=== PATIENT | female | born 1965 | race Caucasian/White ===

== ENCOUNTER 2018-05-26 10:10 | Inpatient (IN) | payer OTHER, BC ==
[2018-05-26] MEDS: ALBUTEROL 0.5% (NEB) 2.5 MG/0.5 ML AMP INH (10:42)
[2018-05-26] MEDS ORDERED: NITROGLYCERIN (SL) 0.4 MG TAB (10:43)
[2018-05-26 10:45] LABS: ADD MAN DIFF? NO
[2018-05-26] MEDS: NITROGLYCERIN 2% 1 GM OINT PKT TD (10:45)
[2018-05-26] MEDS: ASPIRIN 81 MG TAB PO (10:45)
[2018-05-26 10:48] LABS: WHITE BLOOD COUNT 11.6 10^3/ul (4.8-10.8)
[2018-05-26 10:48] LABS: ABNORMAL IP MESSAGE 1; BASOPHIL # 0.1 10^3/ul (0.0-0.1); BASOPHILS % 0.4 % (0.0-2.0); EOSINOPHILS # 0.1 10^3/ul (0.0-0.5); EOSINOPHILS % 0.9 % (0.0-7.0); HEMATOCRIT 58.2 % (37.0-47.0); HEMOGLOBIN 16.5 g/dl (12.0-16.0); LYMPHOCYTES % 8.7 % (15.0-51.0); MEAN CORPUSCULAR HEMOGLOBIN 24.5 pg (29.0-33.0); MEAN CORPUSCULAR HGB CONC 28.4 g/dl (32.0-37.0); MEAN CORPUSCULAR VOLUME 86.4 fl (82.0-101.0); MEAN PLATELET VOLUME 10.5 fl (7.4-10.4); MONOCYTE # 0.8 10^3/ul (0.3-0.9); MONOCYTES % 6.9 % (0.0-11.0); NEUTROPHIL # 9.5 10^3/ul (1.6-7.5); NEUTROPHILS % 82.2 % (39.0-77.0); NUCLEATED RED BLOOD CELLS # 0.2 10^3/ul (0.0-0.0); NUCLEATED RED BLOOD CELLS% 1.3 /100WBC (0.0-0.0); PLATELET COUNT 226 10^3/UL (140-415); RED BLOOD COUNT 6.74 10^6/ul (4.20-5.40); RED CELL DISTRIBUTION WIDTH 23.6 % (11.5-14.5)
[2018-05-26 10:49] LABS: POSITIVE DIFF @See below
[2018-05-26] MEDS: NITROGLYCERIN (SL) 0.4 MG TAB SL ×2 (11:04→12:15)
[2018-05-26 11:06] LABS: ALANINE AMINOTRANSFERASE 31 IU/L (13-69); ALBUMIN 3.5 g/dl (3.3-4.9); ALBUMIN/GLOBULIN RATIO 0.97; ALKALINE PHOSPHATASE 123 IU/L (42-121); ANION GAP 13 (8-16); ASPARTATE AMINO TRANSFERASE 34 IU/L (15-46); BILIRUBIN,INDIRECT 1.1 mg/dl (0-1.1); BILIRUBIN,TOTAL 1.1 mg/dl (0.2-1.3); BLOOD UREA NITROGEN 35 mg/dl (7-20); CALCIUM 8.7 mg/dl (8.4-10.2); CARBON DIOXIDE 33 mmol/L (21-31); CHLORIDE 98 mmol/L (97-110); GLUCOSE 150 mg/dl (70-220); SODIUM 139 mmol/L (135-144); TOTAL PROTEIN 7.1 g/dl (6.1-8.1)
[2018-05-26 11:07] LABS: POTASSIUM 5.3 mmol/L (3.5-5.1)
[2018-05-26 11:07] LABS: LACTIC ACID 1.9 mmol/L (0.5-2.0)
[2018-05-26 11:19] LABS: B-TYPE NATRIURETIC PEPTIDE 4700 PG/ML (0-125); TROPONIN-I < 0.012 ng/ml (0.000-0.120)
[2018-05-26 11:20] LABS: INR 1.05; PARTIAL THROMBOPLASTIN TIME 27.1 Sec (25.0-35.0); PROTIME 13.8 Sec (11.9-14.9); PT RATIO 1.1
[2018-05-26] MEDS: CEFTRIAXONE 1 GM/50 ML (PMX) 50 ML IVPB (11:23)
[2018-05-26] MEDS: METHYLPREDNISOLONE (10 MG/ML) IV SYG IV (11:23)
[2018-05-26] MEDS: AZITHROMYCIN 250 MG TAB PO (11:23)
[2018-05-26 11:26] LABS: AADO2 Arterial 533.8 mmHg (7.0-24.0); Allen Test ACCEPTAB; Arterial Base Excess 2.4 mmol/L (-3.0-3); Arterial Blood Gas Oxygen Sat 97.4 mmHG (95.0-98.0); Arterial COHb 2.6 % (0.0-3.0); Arterial Fraction of Oxyhgb 94.5 % (93.0-99.0); Arterial HCO3 31.9 mmol/L (22.0-26.0); Arterial MetHb 0.4 % (0.0-1.5); Arterial Total Hemglobin 17.6 g/dl (12.0-18.0); Arterial pCO2 69.5 mmhg (35-45); MODE MASK - NRB; Site Left Radial
[2018-05-26] MEDS: FUROSEMIDE 20 MG INJ IV (12:14)
[2018-05-26 12:32] LABS: ADD UMIC YES; UR ASCORBIC ACID NEGATIVE (NEGATIVE); UR BILIRUBIN (Dip) NEGATIVE (NEGATIVE); UR BLOOD (Dip) 1+ mg/dL (NEGATIVE); UR CLARITY SLIGHTLY CLOUDY (CLEAR); UR COLOR YELLOW (YELLOW); UR GLUCOSE (Dip) NEGATIVE (NEGATIVE); UR KETONES (Dip) NEGATIVE (NEGATIVE); UR LEUKOCYTE ESTERASE (Dip) NEGATIVE Leu/ul (NEGATIVE); UR NITRITE (Dip) NEGATIVE (NEGATIVE); UR RBC 1 /HPF (0-5); UR SPECIFIC GRAVITY (Dip) 1.019 (1.003-1.030); UR SQUAMOUS EPITHELIAL CELL FEW /HPF (FEW); UR TOTAL PROTEIN (Dip) 2+ mg/dl (NEGATIVE); UR UROBILINOGEN (Dip) NEGATIVE (NEGATIVE); UR WBC 2 /HPF (0-5)
[2018-05-26] MEDS: NITROGLYCERIN 50 MG/D5W (PMX) 250 ML IV ×3 (12:50→20:56)
[2018-05-26] MEDS ORDERED: BISACODYL 10 MG SUPP PR (14:30)
[2018-05-26] MEDS ORDERED: NACL 0.9% 3 ML SYG IV (14:30)
[2018-05-26] MEDS: METOPROLOL 50 MG TAB PO ×2 (14:30→21:25)
[2018-05-26] MEDS ORDERED: ONDANSETRON 4 MG INJ IV (14:30)
[2018-05-26] MEDS ORDERED: MAGNESIUM HYDROXIDE 30ML CUP PO (14:30)
[2018-05-26] MEDS ORDERED: DOCUSATE SODIUM 100 MG CAP PO (14:30)
[2018-05-26] MEDS: BUMETANIDE 1 MG INJ IV (14:53)
[2018-05-26] MEDS: BUMETANIDE 6 MG in DEXTROSE 5% 36 ML IV (14:53)
[2018-05-26] MEDS ORDERED: GLUCAGON 1 MG INJ IM (15:00)
[2018-05-26] MEDS ORDERED: GLUCOSE GEL 15 GRAM TUBE PO ×2 (15:00)
[2018-05-26] MEDS ORDERED: GLUCOSE GEL 15 GRAM TUBE BUCCAL (15:00)
[2018-05-26] MEDS ORDERED: DEXTROSE 50% 50 ML SYRINGE IV ×2 (15:00)
[2018-05-26 15:48] LABS: AADO2 Arterial 243.9 mmHg (7.0-24.0); Allen Test ACCEPTAB; Arterial Base Excess 4.1 mmol/L (-3.0-3); Arterial Blood Gas Oxygen Sat 97.6 mmHG (95.0-98.0); Arterial COHb 1.6 % (0.0-3.0); Arterial Fraction of Oxyhgb 95.5 % (93.0-99.0); Arterial HCO3 33.4 mmol/L (22.0-26.0); Arterial MetHb 0.6 % (0.0-1.5); Arterial Total Hemglobin 17.5 g/dl (12.0-18.0); Arterial pCO2 69.2 mmhg (35-45); Blood Gas IEPAP 8; Blood Gas PS 16/8; MODE MASK - BIPAP; Site Left Radial
[2018-05-26 16:43] LABS: CREATINE KINASE 120 IU/L (23-200)
[2018-05-26] MEDS: LEVALBUTEROL (NEB) 0.63 MG/3 ML AMP HHN ×2 (16:52→23:02)
[2018-05-26 16:56] LABS: CK-MB 2.43 ng/ml (0.0-2.4); TROPONIN-I 0.013 ng/ml (0.000-0.120)
[2018-05-26] MEDS: ACCU-CHEK XX ×2 (17:30→21:15)
[2018-05-26] MEDS: INSULIN ASPART [NOVOLOG] 3 ML PEN SC ×2 (18:00→21:00)
[2018-05-26] MEDS ORDERED: LOSARTAN 50 MG TAB PO (21:00)
[2018-05-26] MEDS: ISOSORBIDE DINITRATE 10 MG TAB PO (21:24)
[2018-05-26] MEDS: ATORVASTATIN 40 MG TAB PO (21:24)
[2018-05-26] MEDS: FAMOTIDINE 20 MG TAB PO (21:25)
[2018-05-26] MEDS: LOSARTAN 25 MG TAB PO (21:25)
[2018-05-26] MEDS: HEPARIN 5,000 UNIT/0.5 ML VIAL SC (22:14)
[2018-05-26 23:22] LABS: CREATINE KINASE 84 IU/L (23-200)
[2018-05-26 23:34] LABS: CK INDEX 2.2; CK-MB 1.82 ng/ml (0.0-2.4); TROPONIN-I < 0.012 ng/ml (0.000-0.120)
[2018-05-27] MEDS: NITROGLYCERIN 50 MG/D5W (PMX) 250 ML IV ×5 (00:39→21:01)
[2018-05-27 05:16] LABS: AADO2 Arterial 129.5 mmHg (7.0-24.0); Allen Test ACCEPTAB; Arterial Base Excess 10.8 mmol/L (-3.0-3); Arterial Blood Gas Oxygen Sat 94.9 mmHG (95.0-98.0); Arterial Fraction of Oxyhgb 93.6 % (93.0-99.0); Arterial HCO3 39.3 mmol/L (22.0-26.0); Arterial MetHb 0.4 % (0.0-1.5); Arterial Total Hemglobin 16.6 g/dl (12.0-18.0); Arterial pCO2 66.5 mmhg (35-45); Blood Gas IEPAP 22/8; MODE MASK - BIPAP; Site Left Radial
[2018-05-27 05:28] LABS: ADD MAN DIFF? NO
[2018-05-27] MEDS: HEPARIN 5,000 UNIT/0.5 ML VIAL SC ×3 (05:30→22:35)
[2018-05-27 05:31] LABS: ABNORMAL IP MESSAGE 1; BASOPHILS % 0.2 % (0.0-2.0); HEMATOCRIT 53.1 % (37.0-47.0); HEMOGLOBIN 15.5 g/dl (12.0-16.0); LYMPHOCYTES # 0.6 10^3/ul (0.8-2.9); LYMPHOCYTES % 5.4 % (15.0-51.0); MEAN CORPUSCULAR HEMOGLOBIN 24.3 pg (29.0-33.0); MEAN CORPUSCULAR HGB CONC 29.2 g/dl (32.0-37.0); MEAN CORPUSCULAR VOLUME 83.2 fl (82.0-101.0); MEAN PLATELET VOLUME 10.7 fl (7.4-10.4); MONOCYTE # 0.3 10^3/ul (0.3-0.9); MONOCYTES % 2.3 % (0.0-11.0); NEUTROPHIL # 10.9 10^3/ul (1.6-7.5); NEUTROPHILS % 91.4 % (39.0-77.0); NUCLEATED RED BLOOD CELLS # 0.1 10^3/ul (0.0-0.0); NUCLEATED RED BLOOD CELLS% 0.7 /100WBC (0.0-0.0); PLATELET COUNT 215 10^3/UL (140-415); RED BLOOD COUNT 6.38 10^6/ul (4.20-5.40); RED CELL DISTRIBUTION WIDTH 22.8 % (11.5-14.5)
[2018-05-27 05:31] LABS: WHITE BLOOD COUNT 11.9 10^3/ul (4.8-10.8)
[2018-05-27 05:52] LABS: POSITIVE DIFF @See below
[2018-05-27 06:10] LABS: ALANINE AMINOTRANSFERASE 27 IU/L (13-69); ALBUMIN 2.9 g/dl (3.3-4.9); ALBUMIN/GLOBULIN RATIO 0.93; ALKALINE PHOSPHATASE 93 IU/L (42-121); ANION GAP 13 (8-16); ASPARTATE AMINO TRANSFERASE 26 IU/L (15-46); BILIRUBIN,INDIRECT 0.7 mg/dl (0-1.1); BILIRUBIN,TOTAL 0.7 mg/dl (0.2-1.3); BLOOD UREA NITROGEN 31 mg/dl (7-20); CALCIUM 8.1 mg/dl (8.4-10.2); CARBON DIOXIDE 39 mmol/L (21-31); CHLORIDE 91 mmol/L (97-110); CHOL/HDL RATIO 5.2 RATIO; CHOLESTEROL 163 mg/dl (100-200); CREATININE 0.99 mg/dl (0.44-1.00); GLUCOSE 144 mg/dl (70-220); HDL CHOLESTEROL 31 mg/dl (37-92); LDL CHOLESTEROL,CALCULATED 116 mg/dl; MAGNESIUM 1.3 mg/dl (1.7-2.5); POTASSIUM 4.5 mmol/L (3.5-5.1); SODIUM 138 mmol/L (135-144); TRIGLYCERIDES 81 mg/dl (0-149)
[2018-05-27 06:21] LABS: FREE T4 (FREE THYROXINE) 1.23 ng/dl (0.64-1.79)
[2018-05-27 06:35] LABS: HEMOGLOBIN A1C 6.9 % (0-5.9)
[2018-05-27] MEDS: INSULIN ASPART [NOVOLOG] 3 ML PEN SC ×4 (07:35→21:00)
[2018-05-27] MEDS: METOPROLOL 50 MG TAB PO ×2 (08:14→21:01)
[2018-05-27] MEDS: ASPIRIN (EC) 81 MG TAB PO (08:14)
[2018-05-27] MEDS: ACCU-CHEK XX ×4 (08:14→21:17)
[2018-05-27] MEDS: LINAGLIPTIN 5 MG TABLET PO (08:14)
[2018-05-27] MEDS: FAMOTIDINE 20 MG TAB PO ×2 (08:14→21:01)
[2018-05-27] MEDS: LEVALBUTEROL (NEB) 0.63 MG/3 ML AMP HHN ×3 (08:17→23:25)
[2018-05-27] MEDS: ISOSORBIDE DINITRATE 10 MG TAB PO ×3 (08:27→21:02)
[2018-05-27] MEDS: AZITHROMYCIN 250 MG TAB PO (09:49)
[2018-05-27] MEDS: LOSARTAN 25 MG TAB PO (10:01)
[2018-05-27] MEDS: BUMETANIDE 1 MG INJ IV ×2 (10:04→17:41)
[2018-05-27] MEDS: CEFTRIAXONE 1 GM/50 ML (PMX) 50 ML IVPB (10:04)
[2018-05-27] MEDS: MAGNESIUM SULFATE 4 GM/100 ML 100 ML IVPB (12:33)
[2018-05-27] MEDS: LOSARTAN 50 MG TAB PO ×2 (12:36→21:02)
[2018-05-27] MEDS: ATORVASTATIN 40 MG TAB PO (21:01)
[2018-05-28 05:17] LABS: ADD MAN DIFF? NO
[2018-05-28 05:26] LABS: ABNORMAL IP MESSAGE 1; BASOPHILS % 0.3 % (0.0-2.0); EOSINOPHILS # 0.1 10^3/ul (0.0-0.5); EOSINOPHILS % 1.1 % (0.0-7.0); HEMOGLOBIN 15.6 g/dl (12.0-16.0); LYMPHOCYTES # 1.3 10^3/ul (0.8-2.9); LYMPHOCYTES % 13.4 % (15.0-51.0); MEAN CORPUSCULAR HEMOGLOBIN 24.5 pg (29.0-33.0); MEAN CORPUSCULAR HGB CONC 28.4 g/dl (32.0-37.0); MEAN CORPUSCULAR VOLUME 86.5 fl (82.0-101.0); MEAN PLATELET VOLUME 10.4 fl (7.4-10.4); MONOCYTE # 0.7 10^3/ul (0.3-0.9); MONOCYTES % 7.1 % (0.0-11.0); NEUTROPHIL # 7.7 10^3/ul (1.6-7.5); NEUTROPHILS % 77.5 % (39.0-77.0); NUCLEATED RED BLOOD CELLS% 0.3 /100WBC (0.0-0.0); PLATELET COUNT 226 10^3/UL (140-415); RED BLOOD COUNT 6.36 10^6/ul (4.20-5.40); RED CELL DISTRIBUTION WIDTH 22.7 % (11.5-14.5)
[2018-05-28 05:26] LABS: WHITE BLOOD COUNT 9.9 10^3/ul (4.8-10.8)
[2018-05-28 05:39] LABS: POSITIVE DIFF @See below
[2018-05-28 06:01] LABS: BLOOD UREA NITROGEN 43 mg/dl (7-20); CHLORIDE 92 mmol/L (97-110); CREATININE 1.22 mg/dl (0.44-1.00); GLUCOSE 103 mg/dl (70-220); POTASSIUM 4.4 mmol/L (3.5-5.1); SODIUM 139 mmol/L (135-144)
[2018-05-28 06:08] LABS: ANION GAP 12 (8-16)
[2018-05-28 06:10] LABS: CARBON DIOXIDE 39 mmol/L (21-31)
[2018-05-28 06:15] LABS: MAGNESIUM 2.2 mg/dl (1.7-2.5)
[2018-05-28 06:15] LABS: PHOSPHORUS 5.6 mg/dl (2.5-4.9)
[2018-05-28] MEDS: BUMETANIDE 1 MG INJ IV ×2 (06:26→17:49)
[2018-05-28] MEDS: HEPARIN 5,000 UNIT/0.5 ML VIAL SC ×3 (06:28→22:29)
[2018-05-28] MEDS: INSULIN ASPART [NOVOLOG] 3 ML PEN SC ×4 (07:35→21:00)
[2018-05-28] MEDS: LEVALBUTEROL (NEB) 0.63 MG/3 ML AMP HHN ×4 (08:19→23:20)
[2018-05-28 08:28] LABS: AADO2 Arterial 66.4 mmHg (7.0-24.0); Allen Test ACCEPTAB; Arterial Base Excess 7.3 mmol/L (-3.0-3); Arterial COHb 0.8 % (0.0-3.0); Arterial HCO3 40.1 mmol/L (22.0-26.0); Arterial MetHb 0.3 % (0.0-1.5); Arterial Total Hemglobin 16.8 g/dl (12.0-18.0); Arterial pCO2 100.8 mmhg (35-45); MODE NASAL CANNULA; Site Left Radial
[2018-05-28] MEDS: LINAGLIPTIN 5 MG TABLET PO (09:00)
[2018-05-28] MEDS: METOPROLOL 50 MG TAB PO ×2 (09:00→21:06)
[2018-05-28] MEDS: ISOSORBIDE DINITRATE 10 MG TAB PO ×3 (09:50→21:06)
[2018-05-28] MEDS: LOSARTAN 50 MG TAB PO ×2 (09:50→21:07)
[2018-05-28] MEDS: ASPIRIN (EC) 81 MG TAB PO (09:50)
[2018-05-28] MEDS: FAMOTIDINE 20 MG TAB PO ×2 (09:52→21:07)
[2018-05-28] MEDS: AZITHROMYCIN 250 MG TAB PO (09:52)
[2018-05-28] MEDS: SILVER SULFADIAZINE 1% 25 GM CR TOP (09:53)
[2018-05-28] MEDS: FLUTICASONE/VILANTEROL 100-25 INH (09:53)
[2018-05-28] MEDS: ACCU-CHEK XX ×4 (09:55→21:12)
[2018-05-28 12:42] LABS: AADO2 Arterial 101.8 mmHg (7.0-24.0); Allen Test ACCEPTAB; Arterial Base Excess 12.6 mmol/L (-3.0-3); Arterial Blood Gas Oxygen Sat 94.5 mmHG (95.0-98.0); Arterial COHb 1.2 % (0.0-3.0); Arterial Fraction of Oxyhgb 93.1 % (93.0-99.0); Arterial HCO3 44.2 mmol/L (22.0-26.0); Arterial MetHb 0.3 % (0.0-1.5); Arterial Total Hemglobin 16.8 g/dl (12.0-18.0); Arterial pCO2 90.4 mmhg (35-45); Blood Gas IEPAP 22/8; Blood Gas PS 14; MODE MASK - BIPAP; Site Left Radial
[2018-05-28] MEDS: CEFTRIAXONE 1 GM/50 ML (PMX) 50 ML IVPB (12:56)
[2018-05-28 20:57] LABS: AADO2 Arterial 191.3 mmHg (7.0-24.0); Allen Test ACCEPTAB; Arterial Base Excess 11.3 mmol/L (-3.0-3); Arterial COHb 1.2 % (0.0-3.0); Arterial Fraction of Oxyhgb 94.6 % (93.0-99.0); Arterial HCO3 40.4 mmol/L (22.0-26.0); Arterial MetHb 0.3 % (0.0-1.5); Arterial Total Hemglobin 17.1 g/dl (12.0-18.0); Arterial pCO2 70.4 mmhg (35-45); MODE HFNC; Site Left Radial
[2018-05-28] MEDS: ATORVASTATIN 40 MG TAB PO (21:06)
[2018-05-29] MEDS: LORAZEPAM 2 MG INJ IV ×2 (00:48→22:59)
[2018-05-29 05:26] LABS: ADD MAN DIFF? NO
[2018-05-29 05:40] LABS: WHITE BLOOD COUNT 8.4 10^3/ul (4.8-10.8)
[2018-05-29 05:40] LABS: ABNORMAL IP MESSAGE 1; BASOPHILS % 0.2 % (0.0-2.0); EOSINOPHILS # 0.2 10^3/ul (0.0-0.5); EOSINOPHILS % 2.9 % (0.0-7.0); HEMATOCRIT 54.8 % (37.0-47.0); HEMOGLOBIN 15.2 g/dl (12.0-16.0); LYMPHOCYTES # 1.1 10^3/ul (0.8-2.9); LYMPHOCYTES % 12.9 % (15.0-51.0); MEAN CORPUSCULAR HEMOGLOBIN 24.2 pg (29.0-33.0); MEAN CORPUSCULAR HGB CONC 27.7 g/dl (32.0-37.0); MEAN CORPUSCULAR VOLUME 87.3 fl (82.0-101.0); MEAN PLATELET VOLUME 10.5 fl (7.4-10.4); MONOCYTE # 0.8 10^3/ul (0.3-0.9); MONOCYTES % 9.4 % (0.0-11.0); NEUTROPHIL # 6.2 10^3/ul (1.6-7.5); NEUTROPHILS % 74.2 % (39.0-77.0); PLATELET COUNT 194 10^3/UL (140-415); RED BLOOD COUNT 6.28 10^6/ul (4.20-5.40); RED CELL DISTRIBUTION WIDTH 22.8 % (11.5-14.5)
[2018-05-29 05:54] LABS: MAGNESIUM 1.8 mg/dl (1.7-2.5)
[2018-05-29 05:54] LABS: PHOSPHORUS 4.6 mg/dl (2.5-4.9)
[2018-05-29 05:55] LABS: POSITIVE DIFF @See below
[2018-05-29 06:02] LABS: ALANINE AMINOTRANSFERASE 32 IU/L (13-69); ALBUMIN 2.7 g/dl (3.3-4.9); ALBUMIN/GLOBULIN RATIO 0.96; ALKALINE PHOSPHATASE 89 IU/L (42-121); ASPARTATE AMINO TRANSFERASE 33 IU/L (15-46); BILIRUBIN,INDIRECT 0.6 mg/dl (0-1.1); BILIRUBIN,TOTAL 0.6 mg/dl (0.2-1.3); BLOOD UREA NITROGEN 39 mg/dl (7-20); CHLORIDE 91 mmol/L (97-110); CREATININE 1.16 mg/dl (0.44-1.00); GLUCOSE 101 mg/dl (70-220); POTASSIUM 4.3 mmol/L (3.5-5.1); SODIUM 140 mmol/L (135-144); TOTAL PROTEIN 5.5 g/dl (6.1-8.1)
[2018-05-29] MEDS: BUMETANIDE 1 MG INJ IV (06:04)
[2018-05-29] MEDS: HEPARIN 5,000 UNIT/0.5 ML VIAL SC ×3 (06:14→21:58)
[2018-05-29] MEDS: INSULIN ASPART [NOVOLOG] 3 ML PEN SC ×4 (07:35→21:15)
[2018-05-29] MEDS: ACCU-CHEK XX ×4 (08:29→21:08)
[2018-05-29] MEDS: LEVALBUTEROL (NEB) 0.63 MG/3 ML AMP HHN (08:48)
[2018-05-29 09:17] LABS: AADO2 Arterial 178.8 mmHg (7.0-24.0); Allen Test ACCEPTAB; Arterial Base Excess 14.9 mmol/L (-3.0-3); Arterial Blood Gas Oxygen Sat 94.2 mmHG (95.0-98.0); Arterial COHb 1.1 % (0.0-3.0); Arterial Fraction of Oxyhgb 92.9 % (93.0-99.0); Arterial HCO3 46.2 mmol/L (22.0-26.0); Arterial MetHb 0.3 % (0.0-1.5); Arterial Total Hemglobin 16.7 g/dl (12.0-18.0); Blood Gas IEPAP 22/8; MODE MASK - BIPAP; Site Left Radial
[2018-05-29 09:21] LABS: ANION GAP 12 (8-16); CARBON DIOXIDE 41 mmol/L (21-31)
[2018-05-29] MEDS: ISOSORBIDE DINITRATE 10 MG TAB PO ×3 (10:48→21:07)
[2018-05-29] MEDS: SILVER SULFADIAZINE 1% 25 GM CR TOP (10:48)
[2018-05-29] MEDS: AZITHROMYCIN 250 MG TAB PO (10:48)
[2018-05-29] MEDS: FLUTICASONE/VILANTEROL 100-25 INH (10:48)
[2018-05-29] MEDS: LINAGLIPTIN 5 MG TABLET PO (10:49)
[2018-05-29] MEDS: LOSARTAN 50 MG TAB PO ×2 (10:49→21:07)
[2018-05-29] MEDS: FAMOTIDINE 20 MG TAB PO ×2 (10:49→21:07)
[2018-05-29] MEDS: ASPIRIN (EC) 81 MG TAB PO (10:50)
[2018-05-29] MEDS: METOPROLOL 50 MG TAB PO ×2 (10:50→21:07)
[2018-05-29] MEDS: CEFTRIAXONE 1 GM/50 ML (PMX) 50 ML IVPB (10:53)
[2018-05-29] MEDS: METHYLPREDNISOLONE 40 MG INJ IV ×2 (12:50→17:38)
[2018-05-29] MEDS: hydrALAzine 20 MG INJ IV (12:53)
[2018-05-29] MEDS: LEVALBUTEROL (NEB) 1.25 MG/0.5 ML AMP HHN ×3 (13:34→21:00)
[2018-05-29] MEDS: GUAIFENESIN 20 MG/ML 5ML CUP PO (18:11)
[2018-05-29] MEDS: BENZONATATE 100 MG CAP PO (18:11)
[2018-05-29] MEDS: ATORVASTATIN 40 MG TAB PO (21:07)
[2018-05-30] MEDS: METHYLPREDNISOLONE 40 MG INJ IV ×5 (00:57→23:12)
[2018-05-30] MEDS: LEVALBUTEROL (NEB) 1.25 MG/0.5 ML AMP HHN ×6 (01:02→20:48)
[2018-05-30 05:14] LABS: RED BLOOD COUNT 6.62 10^6/ul (4.20-5.40)
[2018-05-30 05:15] LABS: ABNORMAL IP MESSAGE 1; HEMATOCRIT 57.6 % (37.0-47.0); MEAN CORPUSCULAR HEMOGLOBIN 24.2 pg (29.0-33.0); MEAN CORPUSCULAR HGB CONC 27.8 g/dl (32.0-37.0); MEAN PLATELET VOLUME 10.4 fl (7.4-10.4); PLATELET COUNT 205 10^3/UL (140-415); RED CELL DISTRIBUTION WIDTH 21.8 % (11.5-14.5)
[2018-05-30 05:21] LABS: ADD MAN DIFF? YES; POSITIVE DIFF @See below
[2018-05-30] MEDS: hydrALAzine 20 MG INJ IV ×2 (05:24→18:00)
[2018-05-30] MEDS: HEPARIN 5,000 UNIT/0.5 ML VIAL SC ×3 (05:36→21:28)
[2018-05-30 05:43] LABS: MAGNESIUM 1.8 mg/dl (1.7-2.5)
[2018-05-30 05:44] LABS: BLOOD UREA NITROGEN 34 mg/dl (7-20); CALCIUM 8.4 mg/dl (8.4-10.2); CHLORIDE 93 mmol/L (97-110); GLUCOSE 165 mg/dl (70-220); POTASSIUM 4.8 mmol/L (3.5-5.1); SODIUM 140 mmol/L (135-144)
[2018-05-30 06:00] LABS: ANION GAP 12 (8-16)
[2018-05-30 06:02] LABS: CARBON DIOXIDE 40 mmol/L (21-31)
[2018-05-30] MEDS: BUMETANIDE 1 MG INJ IV (09:06)
[2018-05-30] MEDS: ISOSORBIDE DINITRATE 10 MG TAB PO ×3 (09:07→20:03)
[2018-05-30] MEDS: LINAGLIPTIN 5 MG TABLET PO (09:07)
[2018-05-30] MEDS: FAMOTIDINE 20 MG TAB PO ×2 (09:07→20:03)
[2018-05-30] MEDS: ASPIRIN (EC) 81 MG TAB PO (09:07)
[2018-05-30] MEDS: AZITHROMYCIN 250 MG TAB PO (09:07)
[2018-05-30] MEDS: METOPROLOL 50 MG TAB PO ×2 (09:08→20:02)
[2018-05-30] MEDS: LOSARTAN 50 MG TAB PO ×2 (09:08→20:02)
[2018-05-30] MEDS: FLUTICASONE/VILANTEROL 100-25 INH (09:09)
[2018-05-30] MEDS: SILVER SULFADIAZINE 1% 25 GM CR TOP (09:09)
[2018-05-30] MEDS: INSULIN ASPART [NOVOLOG] 3 ML PEN SC ×4 (09:22→20:05)
[2018-05-30 09:45] LABS: SEGMENTED NEUTROPHILS (M) % 84 % (39-77)
[2018-05-30 09:46] LABS: ANISOCYTOSIS 1+ (0-0); BAND NEUTROPHILS #M 0.1 10^3/ul (0.0-0.6); BAND NEUTROPHILS % (M) 2 % (0-4); LYMPHOCYTES #M 0.5 10^3/ul (0.8-2.9); LYMPHOCYTES % (M) 8 % (15-51); MICROCYTOSIS 1+ (0-0); MONOCYTES % (M) 1 % (0-11); PLATELET ESTIMATE NORMAL; POIKILOCYTOSIS 3+ (0-0); POLYCHROMASIA 2+ (0-0); REACTIVE LYMPHOCYTES #M 0.3 10^3/ul (0.0-0.0); REACTIVE LYMPHOCYTES% (M) 5 % (0-0); SEG NEUT #M 5.9 10^3/ul (1.6-7.5)
[2018-05-30 10:09] LABS: AADO2 Arterial 202.3 mmHg (7.0-24.0); Allen Test ACCEPTAB; Arterial Base Excess 13.2 mmol/L (-3.0-3); Arterial Blood Gas Oxygen Sat 92.2 mmHG (95.0-98.0); Arterial COHb 1.1 % (0.0-3.0); Arterial Fraction of Oxyhgb 90.8 % (93.0-99.0); Arterial HCO3 43.2 mmol/L (22.0-26.0); Arterial MetHb 0.4 % (0.0-1.5); Arterial Total Hemglobin 16.9 g/dl (12.0-18.0); Arterial pCO2 77.4 mmhg (35-45); Blood Gas IEPAP 22/8; Blood Gas PS 14; MODE MASK - BIPAP; Site Left Radial
[2018-05-30 10:21] LABS: B-TYPE NATRIURETIC PEPTIDE 4780 PG/ML (0-125)
[2018-05-30] MEDS: CEFTRIAXONE 1 GM/50 ML (PMX) 50 ML IVPB (11:14)
[2018-05-30] MEDS: ENALAPRILAT 1.25 MG INJ IV (11:17)
[2018-05-30] MEDS: GUAIFENESIN 20 MG/ML 5ML CUP PO (20:01)
[2018-05-30] MEDS: QUETIAPINE 25 MG TAB PO (20:06)
[2018-05-30] MEDS: ATORVASTATIN 40 MG TAB PO (20:06)
[2018-05-30] MEDS ORDERED: QUETIAPINE 25 MG TAB PO (21:00)
[2018-05-30] MEDS: morphine 2 MG INJ IV (22:23)
[2018-05-30] MEDS: HALOPERIDOL 5 MG INJ IV (22:23)
[2018-05-31] MEDS: LEVALBUTEROL (NEB) 1.25 MG/0.5 ML AMP HHN ×6 (01:04→22:09)
[2018-05-31] MEDS: morphine 2 MG INJ IV (04:30)
[2018-05-31] MEDS: METHYLPREDNISOLONE 40 MG INJ IV ×3 (05:03→18:12)
[2018-05-31] MEDS: HEPARIN 5,000 UNIT/0.5 ML VIAL SC ×3 (05:05→21:47)
[2018-05-31] MEDS: ACCU-CHEK XX ×4 (07:05→21:00)
[2018-05-31 08:29] LABS: ADD MAN DIFF? NO
[2018-05-31 08:33] LABS: ABNORMAL IP MESSAGE 1; HEMOGLOBIN 15.5 g/dl (12.0-16.0); LYMPHOCYTES # 0.4 10^3/ul (0.8-2.9); LYMPHOCYTES % 4.2 % (15.0-51.0); MEAN CORPUSCULAR HEMOGLOBIN 23.9 pg (29.0-33.0); MEAN CORPUSCULAR HGB CONC 27.7 g/dl (32.0-37.0); MEAN CORPUSCULAR VOLUME 86.3 fl (82.0-101.0); MEAN PLATELET VOLUME 10.5 fl (7.4-10.4); MONOCYTE # 0.1 10^3/ul (0.3-0.9); MONOCYTES % 1.2 % (0.0-11.0); NEUTROPHIL # 8.5 10^3/ul (1.6-7.5); NEUTROPHILS % 94.3 % (39.0-77.0); PLATELET COUNT 181 10^3/UL (140-415); RED BLOOD COUNT 6.49 10^6/ul (4.20-5.40); RED CELL DISTRIBUTION WIDTH 22.5 % (11.5-14.5)
[2018-05-31 08:43] LABS: POSITIVE DIFF @See below
[2018-05-31 08:54] LABS: MAGNESIUM 1.8 mg/dl (1.7-2.5)
[2018-05-31 08:55] LABS: BLOOD UREA NITROGEN 38 mg/dl (7-20); CALCIUM 8.4 mg/dl (8.4-10.2); CHLORIDE 92 mmol/L (97-110); CREATININE 0.85 mg/dl (0.44-1.00); GLUCOSE 165 mg/dl (70-220); SODIUM 138 mmol/L (135-144)
[2018-05-31 09:02] LABS: ANION GAP 9 (8-16)
[2018-05-31 09:06] LABS: CARBON DIOXIDE 42 mmol/L (21-31)
[2018-05-31] MEDS: SILVER SULFADIAZINE 1% 25 GM CR TOP (09:15)
[2018-05-31] MEDS: FLUTICASONE/VILANTEROL 100-25 INH (09:15)
[2018-05-31] MEDS: BUMETANIDE 1 MG INJ IV (09:16)
[2018-05-31] MEDS: ISOSORBIDE DINITRATE 10 MG TAB PO ×3 (09:16→21:48)
[2018-05-31] MEDS: ASPIRIN (EC) 81 MG TAB PO (09:16)
[2018-05-31] MEDS: LINAGLIPTIN 5 MG TABLET PO (09:17)
[2018-05-31] MEDS: LOSARTAN 50 MG TAB PO ×2 (09:17→21:47)
[2018-05-31] MEDS: FAMOTIDINE 20 MG TAB PO ×2 (09:17→21:48)
[2018-05-31] MEDS: METOPROLOL 50 MG TAB PO ×2 (09:17→21:47)
[2018-05-31] MEDS: INSULIN ASPART [NOVOLOG] 3 ML PEN SC ×4 (09:32→21:46)
[2018-05-31] MEDS: NIFEdipine (XL) 30 MG TAB PO (11:46)
[2018-05-31] MEDS: CEFTRIAXONE 1 GM/50 ML (PMX) 50 ML IVPB (11:46)
[2018-05-31] MEDS: hydrALAzine 20 MG INJ IV (18:11)
[2018-05-31] MEDS: ATORVASTATIN 40 MG TAB PO (21:48)
[2018-06-01] MEDS: METHYLPREDNISOLONE 40 MG INJ IV ×5 (00:20→23:25)
[2018-06-01] MEDS: QUETIAPINE 25 MG TAB PO (01:03)
[2018-06-01] MEDS: LEVALBUTEROL (NEB) 1.25 MG/0.5 ML AMP HHN ×6 (01:14→20:58)
[2018-06-01] MEDS: GUAIFENESIN 20 MG/ML 5ML CUP PO ×2 (02:09→23:24)
[2018-06-01 05:23] LABS: ADD MAN DIFF? NO
[2018-06-01 05:35] LABS: WHITE BLOOD COUNT 7.6 10^3/ul (4.8-10.8)
[2018-06-01 05:35] LABS: ABNORMAL IP MESSAGE 1; BASOPHILS % 0.1 % (0.0-2.0); HEMATOCRIT 54.2 % (37.0-47.0); HEMOGLOBIN 15.4 g/dl (12.0-16.0); LYMPHOCYTES # 0.2 10^3/ul (0.8-2.9); LYMPHOCYTES % 2.4 % (15.0-51.0); MEAN CORPUSCULAR HEMOGLOBIN 24.5 pg (29.0-33.0); MEAN CORPUSCULAR HGB CONC 28.4 g/dl (32.0-37.0); MEAN CORPUSCULAR VOLUME 86.3 fl (82.0-101.0); MEAN PLATELET VOLUME 10.9 fl (7.4-10.4); MONOCYTE # 0.1 10^3/ul (0.3-0.9); MONOCYTES % 0.9 % (0.0-11.0); NEUTROPHIL # 7.3 10^3/ul (1.6-7.5); NEUTROPHILS % 96.2 % (39.0-77.0); PLATELET COUNT 196 10^3/UL (140-415); RED BLOOD COUNT 6.28 10^6/ul (4.20-5.40); RED CELL DISTRIBUTION WIDTH 22.5 % (11.5-14.5)
[2018-06-01] MEDS: HEPARIN 5,000 UNIT/0.5 ML VIAL SC ×3 (05:52→21:45)
[2018-06-01 05:54] LABS: MAGNESIUM 1.9 mg/dl (1.7-2.5)
[2018-06-01 05:57] LABS: BLOOD UREA NITROGEN 43 mg/dl (7-20); CALCIUM 8.6 mg/dl (8.4-10.2); CHLORIDE 93 mmol/L (97-110); GLUCOSE 191 mg/dl (70-220); POTASSIUM 4.4 mmol/L (3.5-5.1); SODIUM 139 mmol/L (135-144)
[2018-06-01 06:11] LABS: POSITIVE DIFF @See below
[2018-06-01 06:45] LABS: ANION GAP 10 (8-16); CARBON DIOXIDE 40 mmol/L (21-31)
[2018-06-01 07:44] LABS: AADO2 Arterial 101.3 mmHg (7.0-24.0); Allen Test ACCEPTAB; Arterial Base Excess 7.5 mmol/L (-3.0-3); Arterial COHb 0.8 % (0.0-3.0); Arterial HCO3 36.5 mmol/L (22.0-26.0); Arterial MetHb 0.3 % (0.0-1.5); Arterial Total Hemglobin 16.7 g/dl (12.0-18.0); Arterial pCO2 69.3 mmhg (35-45); MODE NASAL CANNULA; Site Left Radial
[2018-06-01] MEDS: ACCU-CHEK XX ×4 (08:00→20:23)
[2018-06-01] MEDS: FLUTICASONE/VILANTEROL 100-25 INH (09:00)
[2018-06-01] MEDS: BUMETANIDE 1 MG INJ IV ×2 (09:03→18:10)
[2018-06-01] MEDS: LOSARTAN 50 MG TAB PO ×2 (09:03→20:13)
[2018-06-01] MEDS: ASPIRIN (EC) 81 MG TAB PO (09:03)
[2018-06-01] MEDS: NIFEdipine (XL) 30 MG TAB PO (09:04)
[2018-06-01] MEDS: FAMOTIDINE 20 MG TAB PO ×2 (09:04→20:13)
[2018-06-01] MEDS: ISOSORBIDE DINITRATE 10 MG TAB PO ×3 (09:04→20:14)
[2018-06-01] MEDS: METOPROLOL 50 MG TAB PO ×2 (09:04→20:14)
[2018-06-01] MEDS: SILVER SULFADIAZINE 1% 25 GM CR TOP (09:05)
[2018-06-01] MEDS: LINAGLIPTIN 5 MG TABLET PO (09:06)
[2018-06-01] MEDS: INSULIN GLARGINE [LANTus] (100 UNITS/ML) SYG SC (09:08)
[2018-06-01] MEDS: INSULIN ASPART [NOVOLOG] 3 ML PEN SC ×5 (09:10→20:30)
[2018-06-01] MEDS: CEFTRIAXONE 1 GM/50 ML (PMX) 50 ML IVPB (12:12)
[2018-06-01] MEDS: hydrALAzine 20 MG INJ IV (18:35)
[2018-06-01] MEDS: ATORVASTATIN 40 MG TAB PO (20:13)
[2018-06-02] MEDS: LEVALBUTEROL (NEB) 1.25 MG/0.5 ML AMP HHN ×6 (01:19→21:01)
[2018-06-02] MEDS: METHYLPREDNISOLONE 40 MG INJ IV ×2 (05:07→20:18)
[2018-06-02] MEDS: HEPARIN 5,000 UNIT/0.5 ML VIAL SC ×3 (05:27→21:39)
[2018-06-02 06:48] LABS: ADD MAN DIFF? NO
[2018-06-02 06:54] LABS: WHITE BLOOD COUNT 6.2 10^3/ul (4.8-10.8)
[2018-06-02 06:54] LABS: ABNORMAL IP MESSAGE 1; BASOPHILS % 0.2 % (0.0-2.0); HEMATOCRIT 57.4 % (37.0-47.0); HEMOGLOBIN 16.3 g/dl (12.0-16.0); LYMPHOCYTES # 0.2 10^3/ul (0.8-2.9); LYMPHOCYTES % 3.6 % (15.0-51.0); MEAN CORPUSCULAR HEMOGLOBIN 24.4 pg (29.0-33.0); MEAN CORPUSCULAR HGB CONC 28.4 g/dl (32.0-37.0); MEAN CORPUSCULAR VOLUME 85.9 fl (82.0-101.0); MEAN PLATELET VOLUME 10.5 fl (7.4-10.4); MONOCYTE # 0.1 10^3/ul (0.3-0.9); MONOCYTES % 1.8 % (0.0-11.0); NEUTROPHIL # 5.8 10^3/ul (1.6-7.5); NEUTROPHILS % 93.9 % (39.0-77.0); PLATELET COUNT 195 10^3/UL (140-415); RED BLOOD COUNT 6.68 10^6/ul (4.20-5.40); RED CELL DISTRIBUTION WIDTH 22.5 % (11.5-14.5)
[2018-06-02 06:56] LABS: POSITIVE DIFF @See below
[2018-06-02 07:11] LABS: MAGNESIUM 1.8 mg/dl (1.7-2.5)
[2018-06-02 07:15] LABS: BLOOD UREA NITROGEN 43 mg/dl (7-20); CHLORIDE 91 mmol/L (97-110); CREATININE 0.82 mg/dl (0.44-1.00); GLUCOSE 204 mg/dl (70-220); POTASSIUM 4.5 mmol/L (3.5-5.1); SODIUM 138 mmol/L (135-144)
[2018-06-02 07:32] LABS: ANION GAP 9 (8-16); CARBON DIOXIDE 43 mmol/L (21-31)
[2018-06-02] MEDS: ACCU-CHEK XX ×4 (08:22→21:15)
[2018-06-02] MEDS: ACETAMINOPHEN 325 MG TAB PO (08:25)
[2018-06-02] MEDS: LINAGLIPTIN 5 MG TABLET PO (08:25)
[2018-06-02] MEDS: FAMOTIDINE 20 MG TAB PO ×2 (08:26→20:19)
[2018-06-02] MEDS: METOPROLOL 50 MG TAB PO ×2 (08:26→20:19)
[2018-06-02] MEDS: ASPIRIN (EC) 81 MG TAB PO (08:26)
[2018-06-02] MEDS: NIFEdipine (XL) 30 MG TAB PO ×2 (08:27→15:05)
[2018-06-02] MEDS: BUMETANIDE 1 MG INJ IV (08:27)
[2018-06-02] MEDS: INSULIN ASPART [NOVOLOG] 3 ML PEN SC ×4 (08:27→20:38)
[2018-06-02] MEDS: LOSARTAN 50 MG TAB PO ×2 (08:27→20:19)
[2018-06-02] MEDS: ISOSORBIDE DINITRATE 10 MG TAB PO ×4 (08:27→20:18)
[2018-06-02] MEDS: INSULIN GLARGINE [LANTus] (100 UNITS/ML) SYG SC (08:28)
[2018-06-02] MEDS: FLUTICASONE/VILANTEROL 100-25 INH (08:28)
[2018-06-02] MEDS: SILVER SULFADIAZINE 1% 25 GM CR TOP (08:29)
[2018-06-02 09:03] LABS: AADO2 Arterial 85.1 mmHg (7.0-24.0); Allen Test ACCEPTAB; Arterial Base Excess 13.5 mmol/L (-3.0-3); Arterial Blood Gas Oxygen Sat 95.3 mmHG (95.0-98.0); Arterial COHb 1.1 % (0.0-3.0); Arterial Fraction of Oxyhgb 93.9 % (93.0-99.0); Arterial HCO3 43.5 mmol/L (22.0-26.0); Arterial MetHb 0.4 % (0.0-1.5); Arterial Total Hemglobin 16.9 g/dl (12.0-18.0); Arterial pCO2 77.7 mmhg (35-45); MODE NASAL CANNULA; Site Right Radial
[2018-06-02 09:25] LABS: B-TYPE NATRIURETIC PEPTIDE 4830 PG/ML (0-125)
[2018-06-02] MEDS: GUAIFENESIN 20 MG/ML 5ML CUP PO (20:18)
[2018-06-02] MEDS: ATORVASTATIN 40 MG TAB PO (20:19)
[2018-06-02] MEDS: morphine 2 MG INJ IV (20:25)
[2018-06-03] MEDS: LEVALBUTEROL (NEB) 1.25 MG/0.5 ML AMP HHN ×6 (00:25→16:00)
[2018-06-03] MEDS: QUETIAPINE 25 MG TAB PO (02:00)
[2018-06-03] MEDS: HEPARIN 5,000 UNIT/0.5 ML VIAL SC ×2 (06:02→17:45)
[2018-06-03 07:06] LABS: ADD MAN DIFF? NO
[2018-06-03 07:10] LABS: WHITE BLOOD COUNT 4.8 10^3/ul (4.8-10.8)
[2018-06-03 07:10] LABS: ABNORMAL IP MESSAGE 1; BASOPHILS % 0.2 % (0.0-2.0); HEMATOCRIT 53.3 % (37.0-47.0); HEMOGLOBIN 15.1 g/dl (12.0-16.0); LYMPHOCYTES # 0.2 10^3/ul (0.8-2.9); MEAN CORPUSCULAR HEMOGLOBIN 24.3 pg (29.0-33.0); MEAN CORPUSCULAR HGB CONC 28.3 g/dl (32.0-37.0); MEAN CORPUSCULAR VOLUME 85.8 fl (82.0-101.0); MEAN PLATELET VOLUME 10.3 fl (7.4-10.4); MONOCYTE # 0.2 10^3/ul (0.3-0.9); MONOCYTES % 4.6 % (0.0-11.0); NEUTROPHIL # 4.3 10^3/ul (1.6-7.5); NEUTROPHILS % 89.4 % (39.0-77.0); PLATELET COUNT 170 10^3/UL (140-415); RED BLOOD COUNT 6.21 10^6/ul (4.20-5.40); RED CELL DISTRIBUTION WIDTH 21.3 % (11.5-14.5)
[2018-06-03 07:17] LABS: POSITIVE DIFF @See below
[2018-06-03 07:57] LABS: CHLORIDE 92 mmol/L (97-110); POTASSIUM 4.5 mmol/L (3.5-5.1); SODIUM 138 mmol/L (135-144)
[2018-06-03 07:58] LABS: ANION GAP 10 (8-16); BLOOD UREA NITROGEN 39 mg/dl (7-20); CALCIUM 8.5 mg/dl (8.4-10.2); CARBON DIOXIDE 41 mmol/L (21-31); CREATININE 0.83 mg/dl (0.44-1.00); GLUCOSE 186 mg/dl (70-220)
[2018-06-03 07:58] LABS: MAGNESIUM 1.7 mg/dl (1.7-2.5)
[2018-06-03] MEDS: ACCU-CHEK XX ×3 (08:06→17:46)
[2018-06-03] MEDS: INSULIN ASPART [NOVOLOG] 3 ML PEN SC ×3 (08:14→17:45)
[2018-06-03] MEDS: ASPIRIN (EC) 81 MG TAB PO (08:18)
[2018-06-03] MEDS: BUMETANIDE 1 MG INJ IV (08:18)
[2018-06-03] MEDS: FAMOTIDINE 20 MG TAB PO (08:18)
[2018-06-03] MEDS: METHYLPREDNISOLONE 40 MG INJ IV (08:18)
[2018-06-03] MEDS: ISOSORBIDE DINITRATE 10 MG TAB PO ×2 (08:19→17:36)
[2018-06-03] MEDS: LOSARTAN 50 MG TAB PO (08:19)
[2018-06-03] MEDS: LINAGLIPTIN 5 MG TABLET PO (08:19)
[2018-06-03] MEDS: NIFEdipine (XL) 30 MG TAB PO (08:19)
[2018-06-03] MEDS: METOPROLOL 50 MG TAB PO (08:22)
[2018-06-03] MEDS: FLUTICASONE/VILANTEROL 100-25 INH (08:22)
[2018-06-03] MEDS: SILVER SULFADIAZINE 1% 25 GM CR TOP (08:26)
[2018-06-03] MEDS: INSULIN GLARGINE [LANTus] (100 UNITS/ML) SYG SC (08:31)
== END 2018-06-03 18:30 | disposition home health service (06) | DRG 291 ==
LOC: ICU 13:19 → TEL 06-01 17:25 → ICU 05-27 01:11 → E/R 10:10 → TEL 06-01 22:00
PROC: 5A09457 Assistance with Respiratory Ventilation, 24-96 Consecutive Hours, Continuous Positive Airway Pressure (ICD-10-PCS; principal; 2018-05-26)
DX: I11.0 Hypertensive heart disease with heart failure (principal); J96.22 Acute and chronic respiratory failure with hypercapnia; J96.21 Acute and chronic respiratory failure with hypoxia; J45.901 Unspecified asthma with (acute) exacerbation; N17.9 Acute kidney failure, unspecified; I16.1 Hypertensive emergency; Z68.42 Body mass index [BMI] 45.0-49.9, adult; I50.33 Acute on chronic diastolic (congestive) heart failure; E66.01 Morbid (severe) obesity due to excess calories; G47.33 Obstructive sleep apnea (adult) (pediatric); Z91.14 Patient's other noncompliance with medication regimen; E87.5 Hyperkalemia; E11.9 Type 2 diabetes mellitus without complications; E78.5 Hyperlipidemia, unspecified; D69.6 Thrombocytopenia, unspecified
CPT/HCPCS: 36415; 36600; 71045; 80048; 80053; 80061; 81001; 82550; 82553; 82803; 82962; 83036; 83605; 83735; 83880; 84100; 84439; 84443; 84484; 85025; 85610; 85730; 87040; 87081; 93005; 93306; 94640; 94644; 94660; 96365; 96366; 96375; 97110; 97116; 97162; 99291-25

== ENCOUNTER 2019-02-11 04:08 | Inpatient (IN) | payer OTHER ==
[2019-02-11] MEDS: METHYLPREDNISOLONE 125 MG INJ IV (04:37)
[2019-02-11 04:39] LABS: ADD MAN DIFF? NO
[2019-02-11 04:41] LABS: WHITE BLOOD COUNT 9.7 10^3/ul (4.8-10.8)
[2019-02-11 04:41] LABS: BASOPHIL # 0.1 10^3/ul (0.0-0.1); BASOPHILS % 0.6 % (0.0-2.0); EOSINOPHILS # 0.3 10^3/ul (0.0-0.5); EOSINOPHILS % 2.8 % (0.0-7.0); HEMATOCRIT 48.4 % (37.0-47.0); HEMOGLOBIN 14.7 g/dl (12.0-16.0); LYMPHOCYTES # 1.9 10^3/ul (0.8-2.9); LYMPHOCYTES % 19.9 % (15.0-51.0); MEAN CORPUSCULAR HEMOGLOBIN 29.1 pg (29.0-33.0); MEAN CORPUSCULAR HGB CONC 30.4 g/dl (32.0-37.0); MEAN CORPUSCULAR VOLUME 95.7 fl (82.0-101.0); MONOCYTE # 0.6 10^3/ul (0.3-0.9); MONOCYTES % 5.7 % (0.0-11.0); NEUTROPHIL # 6.7 10^3/ul (1.6-7.5); NEUTROPHILS % 68.9 % (39.0-77.0); NUCLEATED RED BLOOD CELLS # 0.2 10^3/ul (0.0-0.0); NUCLEATED RED BLOOD CELLS% 1.6 /100WBC (0.0-0.0); PLATELET COUNT 221 10^3/UL (140-415); RED BLOOD COUNT 5.06 10^6/ul (4.20-5.40); RED CELL DISTRIBUTION WIDTH 16.2 % (11.5-14.5)
[2019-02-11] MEDS: IPRATROPIUM (NEB) 0.5 MG/2.5 ML AMP INH (04:46)
[2019-02-11] MEDS: LEVALBUTEROL (NEB) 1.25 MG/0.5 ML AMP INH (04:46)
[2019-02-11] MEDS: MAGNESIUM SULFATE 2 GM/50 ML 50 ML IVPB (04:50)
[2019-02-11 04:58] LABS: ANION GAP 6 (5-13); BLOOD UREA NITROGEN 31 mg/dl (7-20); CALCIUM 7.9 mg/dl (8.4-10.2); CARBON DIOXIDE 32 mmol/L (21-31); CHLORIDE 98 mmol/L (97-110); CREATININE 1.32 mg/dl (0.44-1.00); Estimated GFR 42 mL/min (>60); GLUCOSE 206 mg/dl (70-220); POTASSIUM 5.1 mmol/L (3.5-5.1); SODIUM 136 mmol/L (135-144)
[2019-02-11 05:01] LABS: INR 0.86; PARTIAL THROMBOPLASTIN TIME 27.2 Sec (23.0-35.0); PROTIME 11.8 Sec (11.9-14.9); PT RATIO 0.9
[2019-02-11 05:10] LABS: B-TYPE NATRIURETIC PEPTIDE 903 PG/ML (0-125); TROPONIN-I 0.018 ng/ml (0.000-0.120)
[2019-02-11 05:55] LABS: AADO2 Arterial 156.3 mmHg (7.0-24.0); Allen Test ACCEPTAB; Arterial Base Excess -1.2 mmol/L (-3.0-3); Arterial Blood Gas Oxygen Sat 96.3 mmHG (95.0-98.0); Arterial COHb 1.3 % (0.0-3.0); Arterial Fraction of Oxyhgb 94.7 % (93.0-99.0); Arterial HCO3 27.6 mmol/L (22.0-26.0); Arterial MetHb 0.4 % (0.0-1.5); Arterial pCO2 63.8 mmhg (35-45); MODE MASK - SIMPLE; Site Right Radial
[2019-02-11] MEDS: FUROSEMIDE 40 MG INJ IV ×3 (05:55→17:19)
[2019-02-11] MEDS ORDERED: ACETAMINOPHEN 325 MG TAB PO (07:00)
[2019-02-11] MEDS ORDERED: ONDANSETRON 4 MG INJ IV (07:00)
[2019-02-11] MEDS ORDERED: LOSARTAN 50 MG TAB PO (11:00)
[2019-02-11] MEDS ORDERED: FUROSEMIDE 40 MG INJ IV (11:00)
[2019-02-11 11:22] LABS: TROPONIN-I 0.012 ng/ml (0.000-0.120)
[2019-02-11] MEDS ORDERED: GLUCAGON 1 MG INJ IM (12:00)
[2019-02-11] MEDS ORDERED: DEXTROSE 50% 50 ML SYRINGE IV ×2 (12:00)
[2019-02-11] MEDS ORDERED: GLUCOSE GEL 15 GRAM TUBE PO ×2 (12:00)
[2019-02-11] MEDS ORDERED: GLUCOSE GEL 15 GRAM TUBE BUCCAL (12:00)
[2019-02-11] MEDS: ASPIRIN (EC) 81 MG TAB PO (12:54)
[2019-02-11] MEDS: NIFEdipine (XL) 60 MG TAB PO (12:54)
[2019-02-11] MEDS: ISOSORBIDE DINITRATE 20 MG TAB PO ×2 (12:55→21:19)
[2019-02-11] MEDS: GABAPENTIN 300 MG CAP PO ×2 (12:55→21:18)
[2019-02-11] MEDS: glipiZIDE 10 MG TAB PO ×2 (13:10→21:23)
[2019-02-11] MEDS: INSULIN ASPART [NOVOLOG] 3 ML PEN SC ×3 (13:12→21:00)
[2019-02-11] MEDS: METOPROLOL 100 MG TAB PO ×2 (13:13→21:18)
[2019-02-11 15:36] LABS: TROPONIN-I < 0.012 ng/ml (0.000-0.120)
[2019-02-11] MEDS: ATORVASTATIN 40 MG TAB PO (21:18)
[2019-02-12] MEDS: FUROSEMIDE 40 MG INJ IV ×2 (05:56→17:20)
[2019-02-12 06:28] LABS: ANION GAP 8 (5-13); BLOOD UREA NITROGEN 47 mg/dl (7-20); CALCIUM 7.8 mg/dl (8.4-10.2); CARBON DIOXIDE 31 mmol/L (21-31); CHLORIDE 98 mmol/L (97-110); CREATININE 1.36 mg/dl (0.44-1.00); Estimated GFR 41 mL/min (>60); GLUCOSE 139 mg/dl (70-220); SODIUM 137 mmol/L (135-144)
[2019-02-12] MEDS: INSULIN ASPART [NOVOLOG] 3 ML PEN SC ×4 (08:00→20:29)
[2019-02-12] MEDS: ISOSORBIDE DINITRATE 20 MG TAB PO ×3 (08:24→20:30)
[2019-02-12] MEDS: NIFEdipine (XL) 60 MG TAB PO (08:24)
[2019-02-12] MEDS: glipiZIDE 10 MG TAB PO ×2 (08:24→20:29)
[2019-02-12] MEDS: GABAPENTIN 300 MG CAP PO ×3 (08:24→20:28)
[2019-02-12] MEDS: ASPIRIN (EC) 81 MG TAB PO (08:24)
[2019-02-12] MEDS: METOPROLOL 100 MG TAB PO (08:27)
[2019-02-12] MEDS: BISACODYL 10 MG SUPP PR (16:30)
[2019-02-12] MEDS: ALBUTEROL/IPRATROPIUM (NEB) 3 ML AMP HHN (17:46)
[2019-02-12] MEDS: DOCUSATE SODIUM 100 MG CAP PO (20:28)
[2019-02-12] MEDS: ATORVASTATIN 40 MG TAB PO (20:28)
[2019-02-13] MEDS: FUROSEMIDE 40 MG INJ IV ×2 (06:13→17:40)
[2019-02-13] MEDS: INSULIN ASPART [NOVOLOG] 3 ML PEN SC ×4 (08:00→20:58)
[2019-02-13] MEDS: ISOSORBIDE DINITRATE 20 MG TAB PO ×3 (08:55→20:58)
[2019-02-13] MEDS: DOCUSATE SODIUM 100 MG CAP PO ×2 (08:55→20:56)
[2019-02-13] MEDS: BISACODYL 10 MG SUPP PR (08:55)
[2019-02-13] MEDS: NIFEdipine (XL) 60 MG TAB PO (08:55)
[2019-02-13] MEDS: ASPIRIN (EC) 81 MG TAB PO (08:56)
[2019-02-13] MEDS: glipiZIDE 10 MG TAB PO ×2 (08:56→20:57)
[2019-02-13] MEDS: GABAPENTIN 300 MG CAP PO ×3 (08:56→20:56)
[2019-02-13 13:24] LABS: ADD MAN DIFF? NO
[2019-02-13 13:25] LABS: BASOPHILS % 0.4 % (0.0-2.0); EOSINOPHILS # 0.1 10^3/ul (0.0-0.5); EOSINOPHILS % 1.9 % (0.0-7.0); HEMATOCRIT 50.5 % (37.0-47.0); LYMPHOCYTES # 1.6 10^3/ul (0.8-2.9); LYMPHOCYTES % 21.8 % (15.0-51.0); MEAN CORPUSCULAR HEMOGLOBIN 28.8 pg (29.0-33.0); MEAN CORPUSCULAR HGB CONC 29.7 g/dl (32.0-37.0); MEAN CORPUSCULAR VOLUME 96.9 fl (82.0-101.0); MEAN PLATELET VOLUME 9.9 fl (7.4-10.4); MONOCYTE # 0.5 10^3/ul (0.3-0.9); MONOCYTES % 6.4 % (0.0-11.0); NEUTROPHIL # 4.9 10^3/ul (1.6-7.5); NEUTROPHILS % 68.3 % (39.0-77.0); NUCLEATED RED BLOOD CELLS% 0.4 /100WBC (0.0-0.0); PLATELET COUNT 216 10^3/UL (140-415); RED BLOOD COUNT 5.21 10^6/ul (4.20-5.40); RED CELL DISTRIBUTION WIDTH 16.6 % (11.5-14.5)
[2019-02-13 13:25] LABS: WHITE BLOOD COUNT 7.2 10^3/ul (4.8-10.8)
[2019-02-13 13:45] LABS: BLOOD UREA NITROGEN 54 mg/dl (7-20); CALCIUM 8.2 mg/dl (8.4-10.2); CHLORIDE 92 mmol/L (97-110); CREATININE 1.25 mg/dl (0.44-1.00); Estimated GFR 45 mL/min (>60); GLUCOSE 117 mg/dl (70-220); MAGNESIUM 2.2 mg/dl (1.7-2.5); POTASSIUM 4.9 mmol/L (3.5-5.1); SODIUM 139 mmol/L (135-144)
[2019-02-13 13:51] LABS: ANION GAP 7 (5-13)
[2019-02-13 13:53] LABS: CARBON DIOXIDE 40 mmol/L (21-31)
[2019-02-13] MEDS: ATORVASTATIN 40 MG TAB PO (20:57)
[2019-02-13] MEDS: BUMETANIDE 4 MG in DEXTROSE 5% 24 ML IV (22:23)
[2019-02-14] MEDS: FUROSEMIDE 40 MG INJ IV (05:48)
[2019-02-14] MEDS: INSULIN ASPART [NOVOLOG] 3 ML PEN SC ×4 (07:36→20:46)
[2019-02-14] MEDS: glipiZIDE 10 MG TAB PO ×2 (08:35→20:45)
[2019-02-14] MEDS: DOCUSATE SODIUM 100 MG CAP PO ×2 (08:35→20:45)
[2019-02-14] MEDS: ASPIRIN (EC) 81 MG TAB PO (08:35)
[2019-02-14] MEDS: GABAPENTIN 300 MG CAP PO ×3 (08:35→20:46)
[2019-02-14] MEDS: NIFEdipine (XL) 60 MG TAB PO (08:35)
[2019-02-14] MEDS: ISOSORBIDE DINITRATE 20 MG TAB PO ×3 (08:35→20:45)
[2019-02-14] MEDS: BISACODYL 10 MG SUPP PR (08:36)
[2019-02-14] MEDS: BUMETANIDE 6 MG in DEXTROSE 5% 36 ML IV (16:48)
[2019-02-14] MEDS: BUMETANIDE 1 MG TAB PO (17:19)
[2019-02-14] MEDS: ATORVASTATIN 40 MG TAB PO (20:45)
== END 2019-02-14 22:20 | disposition home health service (06) | DRG 291 ==
LOC: E/R 04:08 → 6WM 06:41
DX: I13.0 Hypertensive heart and chronic kidney disease with heart failure and stage 1 through stage 4 chronic kidney disease, or unspecified chronic kidney disease (principal); J96.90 Respiratory failure, unspecified, unspecified whether with hypoxia or hypercapnia; I50.33 Acute on chronic diastolic (congestive) heart failure; Z68.42 Body mass index [BMI] 45.0-49.9, adult; E11.8 Type 2 diabetes mellitus with unspecified complications; E66.01 Morbid (severe) obesity due to excess calories; N18.3 Chronic kidney disease, stage 3 (moderate); E78.5 Hyperlipidemia, unspecified; J45.909 Unspecified asthma, uncomplicated; F32.9 Major depressive disorder, single episode, unspecified; G47.33 Obstructive sleep apnea (adult) (pediatric)
CPT/HCPCS: 36415; 36600; 71045; 71046; 80048; 82803; 82962; 83735; 83880; 84484; 85025; 85610; 85730; 93005; 93306; 94644; 94660; 94664; 96374; 96375; 99285-25

== ENCOUNTER 2019-06-07 13:45 | Emergency (ER) | payer OTHER ==
[2019-06-07] MEDS: FUROSEMIDE 20 MG TAB PO (16:33)
== END 2019-06-07 16:38 | disposition home or self-care (01) ==
LOC: FTE 13:45
DX: M54.6 Pain in thoracic spine (principal); R05 Cough; M25.512 Pain in left shoulder; J45.909 Unspecified asthma, uncomplicated; I10 Essential (primary) hypertension; Z79.82 Long term (current) use of aspirin; Z79.84 Long term (current) use of oral hypoglycemic drugs
CPT/HCPCS: 71045; 80048; 83880; 84484; 85025; 93005; 99285-25